=== PATIENT | male | born 1975 | race Caucasian/White ===

== ENCOUNTER 2016-12-07 20:26 | Emergency (ER) | payer SELFPAY ==
[2016-12-07 22:30] VITALS: TEMP 98.5; BMI 24.3
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
[2016-12-07] MEDS ORDERED: IBUPROFEN 800 MG TAB PO ONE (23:17)
[2016-12-07 23:31] VITALS: BP 116/61; PULSE 56
== END 2016-12-07 23:24 | disposition home or self-care (01) ==
LOC: ED 20:26
DX: S93.401A Sprain of unspecified ligament of right ankle, initial encounter (principal); S93.601A Unspecified sprain of right foot, initial encounter; X58.XXXA Exposure to other specified factors, initial encounter; Y93.I9 Activity, other involving external motion
CPT/HCPCS: 73610; 73630; 99283; J3490